=== PATIENT | male | born 1995 | race Two or more races ===

== ENCOUNTER 2019-08-19 23:31 | Emergency (ER) | payer MEDICAID ==
[~2019-08-19] VITALS: Ht 177.8 cm; Wt 68.5 kg
--- NOTE | 2019-08-20 00:05 | NUR ---
PT BIBSELF. AAOX4. PT C/O R KNEE PAIN 10/10 TINGL[place] RADIATING TO FOOT. "MY FOOT GOT CAUGHT IN THE ESCALATOR THREE DAYS AGO." PT UNABLE TO BEND KNEE. PLACED ON MONITOR AND PULSE OX. BREATHING EVEN AND UNLABORED. NO ACUTE DISTRESS NOTED. AWAITING FOR MD FOR EVAL.
--- NOTE | 2019-08-20 01:00 | NUR ---
XRAY AT BEDSIDE.
--- NOTE | 2019-08-20 01:12 | NUR ---
PT AMBULATED TO THE RESTROOM
--- NOTE | 2019-08-20 01:29 | NUR ---
Patient is resting comfortably in bed. Easily aroused.
--- NOTE | 2019-08-20 01:32 | NUR ---
ICE PACK GIVEN TO PT TO APPLY ON KNEE
[2019-08-20] MEDS ORDERED: IBUPROFEN 600 MG TABLET PO ONE ×2 (02:15→02:30)
--- NOTE | 2019-08-20 02:18 | NUR ---
Patient discharged to home in stable condition. Written and verbal after care instructions given. Patient verbalizes understanding of instruction and RX. Explained proper way of using knee brace. pt ambulatory using knee brace.
[2019-08-20 02:58] VITALS: BP 126/66
== END 2019-08-20 02:20 | disposition home or self-care (01) ==
LOC: ER 23:33
DX: S80.01XA Contusion of right knee, initial encounter (principal); Z88.6 Allergy status to analgesic agent; W18.39XA Other fall on same level, initial encounter; Y93.89 Activity, other specified; Y92.89 Other specified places as the place of occurrence of the external cause; Y99.8 Other external cause status
CPT/HCPCS: 73564-TC